=== PATIENT | male | born 1945 | race Two or more races ===

== ENCOUNTER 2019-07-23 15:11 | Inpatient (IN) | payer OTHER ==
[~2019-07-23] VITALS: Ht 172.7 cm; Wt 96.5 kg
[2019-07-23 17:15] LABS: Albumin 3.8 g/dL (3.4-5.0); Anion Gap 12 (5-15); Calcium 8.4 mg/dL (8.5-10.1); Carbon Dioxide 24 mmol/L (21-32); Chloride 102 mmol/L (98-107); Glucose 132 mg/dL (74-106); Sodium 138 mmol/L (136-145)
[2019-07-23 17:20] LABS: Alanine Aminotransferase 15 U/L (16-61); Alkaline Phosphatase 167 U/L (45-117); Aspartate Aminotransferase 13 U/L (15-37); BUN/Creatinine Ratio 9.9; Bilirubin, Total 0.5 mg/dL (0.2-1.0); GFR African American 5 mL/min; GFR Non-African American 4 mL/min; Total Protein 7.2 g/dL (6.4-8.2)
[2019-07-23 17:24] LABS: Basophils # (auto) 0.1 uL; Eosinophils # (auto) 0.3 uL; Eosinophils % (auto) 4.5 % (0.0-7.0); Hematocrit 33.4 % (41.0-53.0); Hemoglobin 10.7 g/dL (13.5-17.5); Lymphocytes # (auto) 1.1 uL; Lymphocytes % (auto) 17.1 % (10.0-50.0); Mean Corpuscular Hemoglobin 32.1 pg (28.0-32.0); Mean Corpuscular Hgb Conc. 32.2 g/dL (32.0-36.0); Mean Corpuscular Volume 99.9 fL (80.0-100.0); Monocytes # (auto) 0.5 uL; Monocytes % (auto) 7.7 % (0.0-12.0); Neutrophils # (auto) 4.5 uL; Neutrophils % (auto) 69.7 % (37.0-80.0); Platelet Count (auto) 188 10^3/uL (140-450); Red Blood Cells 3.34 10^6/uL (4.5-5.90); Red Cell Distribution Width 18.8 % (11.8-14.3); White Blood Cell 6.5 10^3/uL (4.4-10.8)
[2019-07-23] MEDS ORDERED: ALBUTEROL SULF 2.5 MG/0.5ML(0.5%) NEB SOLN NEB STA (17:34)
[2019-07-23 17:36] LABS: Potassium 8.5 mmol/L (3.5-5.1)
[2019-07-23 17:37] LABS: Blood Urea Nitrogen 122 mg/dL (7-18)
[2019-07-23] MEDS ORDERED: DEXTROSE (50%) 50ML SYRG IV ONE ×2 (17:45→19:30)
[2019-07-23] MEDS ORDERED: InsuLIN REG 1unit/0.01ml Soln (100units/ml) IV ONE ×2 (17:45→19:30)
[2019-07-23] MEDS ORDERED: CALCIUM GLUC 4.65meq/50ml D5AE 50 ML IV ONE (17:45)
[2019-07-23] MEDS ORDERED: SODIUM ZIRCONIUM CYCL 10 GM PAK PO ONE (17:45)
[2019-07-23] MEDS ORDERED: SODIUM BICARBONATE 8.4% INJ 50ML SYRINGE IV ONE (17:45)
[2019-07-23] MEDS ORDERED: ACETAMINOPHEN 500 MG TAB PO PRN (18:15)
[2019-07-23] MEDS ORDERED: MORPHINE SULF INJ 2 MG/ML SYRINGE 1ML IV PRN ×2 (18:15)
[2019-07-23] MEDS ORDERED: NITROGLYCERIN 0.4 MG SL TAB SL PRN (18:15)
[2019-07-23] MEDS ORDERED: DEXTROSE (50%) 50ML SYRG IV PRN (18:15)
[2019-07-23] MEDS ORDERED: HYDROcodone-ACET 5/325MG TAB PO PRN (18:15)
[2019-07-23] MEDS ORDERED: ALBUTEROL SULF 2.5 MG/0.5ML(0.5%) NEB SOLN NEB ONE (19:30)
[2019-07-23] MEDS ORDERED: SODIUM BICARBONATE 8.4 % INJ 50ML VIAL IV ONE (19:30)
[2019-07-23] MEDS: InsuLIN REG 1unit/0.01ml Soln (100units/ml) SC SCH (22:00)
[2019-07-23] MEDS: ACCU-CHEK COMFORT CURVE STRIP VI SCH (22:24)
[2019-07-23] MEDS: metroNIDAZOLE 500MG/100ML 100 ML IV SCH (22:27)
[2019-07-23 22:30] LABS: BUN/Creatinine Ratio 9.9; Calcium 8.2 mg/dL (8.5-10.1)
[2019-07-23 22:37] LABS: Potassium 6.5 mmol/L (3.5-5.1)
[2019-07-24] VITALS (16 sets, daily range): BP systolic 103–148; BP diastolic 40–86
[2019-07-24] MEDS: hydrALAZINE HCL 20 MG/ML VL IV SCH ×4 (00:54→17:38)
--- NOTE | 2019-07-24 04:00 | NUR ---
REPORT RECEIVED, ASSUMED CARE.
[2019-07-24 05:55] LABS: Basophils # (auto) 0.1 uL; Basophils % (auto) 0.7 % (0.0-2.0); Eosinophils # (auto) 0.2 uL; Eosinophils % (auto) 3.1 % (0.0-7.0); Hematocrit 30.3 % (41.0-53.0); Lymphocytes # (auto) 0.8 uL; Lymphocytes % (auto) 10.7 % (10.0-50.0); Mean Corpuscular Hemoglobin 32.8 pg (28.0-32.0); Mean Corpuscular Hgb Conc. 33.1 g/dL (32.0-36.0); Mean Corpuscular Volume 98.9 fL (80.0-100.0); Monocytes # (auto) 0.4 uL; Monocytes % (auto) 5.6 % (0.0-12.0); Neutrophils # (auto) 5.9 uL; Neutrophils % (auto) 79.9 % (37.0-80.0); Nucleated Red Blood Cells % 0.1 %; Platelet Count (auto) 189 10^3/uL (140-450); Red Blood Cells 3.06 10^6/uL (4.5-5.90); White Blood Cell 7.4 10^3/uL (4.4-10.8)
[2019-07-24] MEDS: metroNIDAZOLE 500MG/100ML 100 ML IV SCH ×3 (06:00→21:40)
[2019-07-24 06:18] LABS: Albumin 3.5 g/dL (3.4-5.0); BUN/Creatinine Ratio 9.9; Calcium 8.3 mg/dL (8.5-10.1)
[2019-07-24 06:22] LABS: Bilirubin, Total 0.6 mg/dL (0.2-1.0); Total Protein 6.6 g/dL (6.4-8.2)
[2019-07-24 06:27] LABS: Potassium 7.8 mmol/L (3.5-5.1)
[2019-07-24] MEDS: InsuLIN REG 1unit/0.01ml Soln (100units/ml) SC SCH ×4 (06:31→22:36)
[2019-07-24] MEDS: ACCU-CHEK COMFORT CURVE STRIP VI SCH ×4 (06:31→22:36)
--- NOTE | 2019-07-24 06:34 | NUR ---
NOTIFIED HOSPITALIST OF CRITICAL K+ 7.8
[2019-07-24] MEDS ORDERED: ALBUTEROL SULF 2.5 MG/0.5ML(0.5%) NEB SOLN NEB ONE (06:45)
[2019-07-24] MEDS ORDERED: SODIUM ZIRCONIUM CYCL 10 GM PAK PO ONE (06:45)
[2019-07-24] MEDS ORDERED: CALCIUM GLUC 4.65meq/50ml D5AE 50 ML IV ONE (06:45)
[2019-07-24] MEDS ORDERED: DEXTROSE (50%) 50ML SYRG IV ONE (06:45)
[2019-07-24] MEDS ORDERED: InsuLIN REG 1unit/0.01ml Soln (100units/ml) IV ONE (06:45)
[2019-07-24] MEDS ORDERED: SODIUM BICARBONATE 8.4 % INJ 50ML VIAL IV ONE (06:45)
--- NOTE | 2019-07-24 07:50 | NUR ---
MADE ERROR USING INCORRECT USER NAME (USED SORAIDA ON ACCIDENT) FOR SOME OF THE AM DOCUMENTATION. REPLACED WITH CORRECT USER NAME.
--- NOTE | 2019-07-24 08:00 | NUR ---
SBAR REPORT RECEIVED FROM MARIBETH QUIGLEY RN. AM ASSESSMENT PERFORMED AT THIS TIME WITH 0 COMPLICATIONS NOTED. SEE FLOWSHEET FOR MORE DETAILS. VSS.
--- NOTE | 2019-07-24 08:00 | NUR ---
SBAR REPORT RECEIVED FROM MARIBETH QUIGLEY RN. AM ASSESSMENT PERFORMED AT THIS TIME WITH 0 COMPLICATIONS NOTED. SEE FLOWSHEET FOR MORE DETAILS. VSS
--- NOTE | 2019-07-24 08:15 | NUR ---
PT HAS ORDERS FOR HEMODIALYSIS TODAY. HD RN AT BEDSIDE. PT OFFICIALLY HOOKED UP AT HD SESSION AT THIS TIME WITH 0 COMPLICATIONS NOTED, VSS.
--- NOTE | 2019-07-24 08:15 | NUR ---
PT HAS ORDERS FOR HEMODIALYSIS TODAY. HD RN AT BEDSIDE. PT OFFICIALLY HOOKED UP AT HD SESSION AT THIS TIME WITH 0 COMPLICATIONS NOTED, VSS.
[2019-07-24] MEDS ORDERED: SODIUM CHL 0.9% 1000 ML BAG XX ONE (08:30)
--- NOTE | 2019-07-24 09:04 | NUR ---
[id number] 07/24/19 Contacted systems security analyst Magali at [employer] and requested authorization to be provided for patient's continued stay. Per Magali they did receive clinical information today on this patient-but that the residential case manager has not yet been assigned, they don't come in until 929-the assigned residential case manager will have to review today's clinical information before further authorization can be provided. I requested that Magali have the assigned residential case manager give me a call-contact information provided.
--- NOTE | 2019-07-24 11:15 | NUR ---
PT COMPLETED WITH HEMODIALYSIS TREATMENT AT THIS TIME. PT TOLERATED PROCEDURE WELL WITH 0 COMPLICATIONS NOTED, VSS. TOTAL OUTPUT FOR THIS SESSION IS 2.5 LITERS.
[2019-07-24] MEDS: FAMOTIDINE 20 MG TAB PO SCH (12:00)
--- NOTE | 2019-07-24 12:31 | NUR ---
PT COMPLETED DIALYSIS SESSION EARLIER TODAY. DSG'S TO LEFT ARM FISTULA TAKEN OFF. SITE WNL (NO OOZING NOTED, BRUIT/THRILL PALPABLE, PULSES PALPABLE). VSS.
--- NOTE | 2019-07-24 14:00 | NUR ---
MD MIKE AT BEDSIDE. UPDATED MD WITH PT OVERALL STATUS INCLUDING ABNORMAL LAB VALUES. NEW ORDERS GIVEN AND IMPLEMENTED, VSS.
--- NOTE | 2019-07-24 15:44 | NUR ---
SPOKE WITH PT'S FAMILY ABOUT POC. NO FURTHER QUESTIONS NOTED AT THIS TIME. PT'S VERBALIZED UNDERSTANDING WITH POC, VSS.
--- NOTE | 2019-07-24 15:59 | NUR ---
md garg at bedside. updated with pt's overall status including abnormal labs. new orders given and implemented, vss. Addendum: 07/24/19 at 1616 by Amira Mendez RN md garg at bedside. updated with pt's overall status including abnormal labs. no new orders at this time, vsS.
--- NOTE | 2019-07-24 16:15 | NUR ---
cytology laboratory manager at bedside drawing BMP at this time. vss.
[2019-07-24 16:43] LABS: BUN/Creatinine Ratio 7.4
--- NOTE | 2019-07-24 17:52 | NUR ---
sbar report given to rose guadalupe at this time for continuity of care. no changes noted in pt's condition. vss.
--- NOTE | 2019-07-24 18:16 | NUR ---
Telemetry admit from ER WILLA GERARDO admitted to Telemetry unit after SBAR received. Patient oriented to Holli lugo RN, unit, room, bed, and unit policies regarding patient care and visiting hours. Patient now on continuous telemetry monitoring, tele box #70 and telemetry reading on arrival to unit is SR. Patient placed on bed side oxygen, weighed by bed scale and encouraged to call if they need something. All questions and concerns addressed, patient verbalized understanding. Instructed patient on POC, fall precautions and to call for assistance as needed. Patient verbalized understanding. Fall precautions in place with call light within reach.
--- NOTE | 2019-07-24 19:16 | NUR ---
Care endorsed to ANDREW Christina. Patient resting in bed with even and unlabored respirations, no distress noted. Fall precautions in place with call light within reach.
--- NOTE | 2019-07-24 19:35 | NUR ---
Opening Shift Note Assumed care of patient, awake and alert. No S/S of distress/SOB or pain. Instructed on POC and to call for assist PRN, will continue to monitor for changes Q1hr and PRN.
[2019-07-24] MEDS ORDERED: EPOETIN ALFA 4,000 UNIT/ML VL SC ONE (21:00)
[2019-07-25] MEDS: hydrALAZINE HCL 20 MG/ML VL IV SCH ×4 (00:14→18:30)
--- NOTE | 2019-07-25 00:15 | NUR ---
ASSESSMENT The patient's temperature in 100.0 F. The patient reports feeling hot and sweaty. Will administer with PRN Tylenol.
[2019-07-25 05:00] VITALS: BP 143/65
[2019-07-25] MEDS: metroNIDAZOLE 500MG/100ML 100 ML IV SCH ×3 (05:59→21:52)
[2019-07-25] MEDS: ACCU-CHEK COMFORT CURVE STRIP VI SCH ×4 (06:18→21:53)
[2019-07-25] MEDS: InsuLIN REG 1unit/0.01ml Soln (100units/ml) SC SCH ×4 (06:18→21:53)
--- NOTE | 2019-07-25 07:41 | NUR ---
CLOSING NOTE CARE HAS BEEN ENDORSE TO DAY SHIFT RN.
--- NOTE | 2019-07-25 07:42 | NUR ---
Opening Shift Note Assumed care of patient, awake and alert x4. No S/S of distress or SOB, no pain noted or reported at this time. Respirations are even and unlabored on RA. Updated on POC and instructed to call for assistance as needed, patient verbalized understanding. Bed locked in lowest position, side rails up x2, call light within reach. Will continue to monitor for changes Q1hr and PRN.
[2019-07-25 08:16] VITALS: BP 145/59
--- NOTE | 2019-07-25 10:12 | NUR ---
1000 07/25/19 Contacted Danna-Teasel Gig Operator at [facility] requesting authorization for patient's continued stay. I questioned her about the denial for yesterday-she said it was due to lack of information (due to the fact that the information they received yesterday was for the day before). I let Danna know that I spoke with senior policy analyst Magali yesterday morning and had requested a phone call from the briefcase sewer and that never happened. Per Teasel Gig Operator Danna-they are overturning the denial for yesterday-giving us authorization through 1000 today-she will fax it to us. Teasel Gig Operator Danna's direct line [phone]. I spoke with Dr. Frost regarding the plan of care for this patient-she has not seen him yet today-but possible discharge home.
[2019-07-25] MEDS: FAMOTIDINE 20 MG TAB PO SCH (10:40)
--- NOTE | 2019-07-25 11:40 | NUR ---
IV removal IV DC'd with clean sterile technique, catheter fully intact. Pressure dressing applied to site. Patient tolerated well. NOTE: [Right hand and right wrist both removed, leaking, painful and occluded)
--- NOTE | 2019-07-25 11:55 | NUR ---
IV insertion IV access obtained, via clean sterile technique by inserting 22 gauge catheter at right forearm after 3 attempt(s). IV secured properly. No trauma to site. Patient tolerated well.
[2019-07-25 12:22] VITALS: BP 145/71
[2019-07-25] MEDS: ONDANSETRON HCL 4 MG/2 ML VIAL IV PRN (12:29)
[2019-07-25] MEDS ORDERED: SODIUM CHL 0.9% 1000 ML BAG XX ONE (12:45)
--- NOTE | 2019-07-25 13:45 | NUR ---
Dialysis nurse at bedside.
--- NOTE | 2019-07-25 15:19 | NUR ---
oyster shipper returned Heparin Per oyster shipper, patient states he does not use Heparin. Returned to [facility].
--- NOTE | 2019-07-25 16:26 | NUR ---
Patient discharge on hold Spoke with Danna at [facility] ([phone]), patient is okay to stay one more night if patient prefers. Spoke with patient, he would prefer to stay here and not be transferred. Dr. Gutiérrez is okay with patient staying one more night, labs to be drawn in the am, and as long as patient does not have any more nausea/vomiting, he should be discharged home tomorrow. die set up worker Shanna Pittman made aware as well.
[2019-07-25 16:27] VITALS: BP 150/76
--- NOTE | 2019-07-25 16:32 | NUR ---
2234 I received a message from [facility] [employer] Return Repairer Danna letting me know that she spoke with patient and he prefers to stay here and not be transferred to [facility]. Per Danna-they are providing authorization until 07/26/19 1000. I spoke with nurse Suad-she spoke with Dr. Frost regarding patient's request to stay here.
--- NOTE | 2019-07-25 18:30 | NUR ---
Dialysis completed No fluids removed. Patient vitals stable BP 151/83, HR 68. No s/s of distress or SOB. Patient sitting up eating dinner. Addendum: 07/25/19 at 1903 by Suad Augustine RN Per print line operator, Okay to remove fistula access dressing after 1930 as long as there are no s/s of bleeding. Patient did not receive heparin so monitor closely.
--- NOTE | 2019-07-25 18:41 | NUR ---
Patient Rounds Patient sitting up at bedside eating dinner. No S/S of distress or SOB. Care will be endorsed to night baker RN.
[2019-07-25 19:04] VITALS: BP 151/83
--- NOTE | 2019-07-25 19:30 | NUR ---
Opening Shift Note Assumed care of patient, awake and alert. No S/S of distress/SOB or pain. Fistula to left FA thrill felt. Instructed on POC and to call for assist PRN, will continue to monitor for changes Q1hr and PRN.
[2019-07-25] MEDS ORDERED: EPOETIN ALFA 4,000 UNIT/ML VL SC ONE (21:00)
[2019-07-25 22:00] VITALS: BP 144/57
[2019-07-26 05:00] VITALS: BP 153/63
[2019-07-26] MEDS: metroNIDAZOLE 500MG/100ML 100 ML IV SCH (06:34)
[2019-07-26] MEDS: hydrALAZINE HCL 20 MG/ML VL IV SCH ×3 (06:35→12:00)
--- NOTE | 2019-07-26 06:35 | NUR ---
New IV started to left FA, 22 G. Removed previous IV due to "burning" whenever I flushed his IV. Tolerated well. No distress noted
[2019-07-26 06:40] LABS: Basophils # (auto) 0.1 uL; Basophils % (auto) 1.2 % (0.0-2.0); Eosinophils # (auto) 0.2 uL; Eosinophils % (auto) 4.6 % (0.0-7.0); Hematocrit 31.8 % (41.0-53.0); Hemoglobin 10.7 g/dL (13.5-17.5); Lymphocytes # (auto) 0.7 uL; Lymphocytes % (auto) 13.6 % (10.0-50.0); Mean Corpuscular Hemoglobin 32.9 pg (28.0-32.0); Mean Corpuscular Hgb Conc. 33.7 g/dL (32.0-36.0); Mean Corpuscular Volume 97.6 fL (80.0-100.0); Monocytes # (auto) 0.6 uL; Monocytes % (auto) 11.3 % (0.0-12.0); Neutrophils # (auto) 3.4 uL; Neutrophils % (auto) 69.3 % (37.0-80.0); Platelet Count (auto) 172 10^3/uL (140-450); Red Blood Cells 3.26 10^6/uL (4.5-5.90); Red Cell Distribution Width 17.4 % (11.8-14.3); White Blood Cell 4.9 10^3/uL (4.4-10.8)
[2019-07-26 06:47] LABS: BUN/Creatinine Ratio 6.1; Calcium 8.3 mg/dL (8.5-10.1); Potassium 4.7 mmol/L (3.5-5.1)
[2019-07-26] MEDS ORDERED: SODIUM CHL 0.9% 1000 ML BAG XX ONE (07:00)
[2019-07-26] MEDS: ACCU-CHEK COMFORT CURVE STRIP VI SCH ×2 (07:00→11:11)
[2019-07-26] MEDS: InsuLIN REG 1unit/0.01ml Soln (100units/ml) SC SCH ×2 (07:00→11:11)
--- NOTE | 2019-07-26 07:45 | NUR ---
Opening Note Assumed pt care from [facility] nurse. Pt is a/ox4 with no s/s of distress or SOB. Pt is currently sitting out of bed eating breakfast with no complaints. Discussed POC with pt and the scheduled dialysis today; pt verbalized understanding. Discussed possible d/c today; pt verbalized understanding. Safety measures maintained with call light within reach, bed in lowest position and side rails up. Will continue to monitor for changes q1hr and prn.
--- NOTE | 2019-07-26 08:53 | NUR ---
Dialysis at Bedside
[2019-07-26] MEDS: FAMOTIDINE 20 MG TAB PO SCH (08:54)
[2019-07-26 09:13] VITALS: BP 137/64
--- NOTE | 2019-07-26 10:14 | NUR ---
Dr Frost at Bedside MD at bedside; plans to d/c home today post dialysis. Will implement orders and follow through.
[2019-07-26 10:20] VITALS: BP 137/64
--- NOTE | 2019-07-26 10:54 | NUR ---
MRSA NARES SPECIMEN SENT TO LAB
--- NOTE | 2019-07-26 12:07 | NUR ---
Tele Box Sent to ICU Tele number [phone] sent back to ICU.
--- NOTE | 2019-07-26 12:24 | NUR ---
Dialysis Complete Dialysis nurse reported that 1.35 L removed, ending BP of 167/58 with a HR of 59. Pressure dressing applied and to be removed at 1400. Pt complains of mild dizziness. Will continue to monitor. Addendum: 07/26/19 at 1244 by EMILY LEIGH RN RN Reassessed pt, BP is 148/72 HR of 70. Pt states that he no longer feels dizzy. Will continue to monitor and follow through with eunice/sadiq
[2019-07-26 12:35] VITALS: BP 163/71
[2019-07-26] MEDS: ONDANSETRON HCL 4 MG/2 ML VIAL IV PRN (13:01)
--- NOTE | 2019-07-26 13:56 | NUR ---
IV Removed IV to pt's R FA removed fully intact. Site is asymptomatic. Pressure applied for 3 minutes with gauze and then wrapped in coban. Pt instructed to keep dressing on for 30 minutes. Pt verbalized understanding.
--- NOTE | 2019-07-26 14:01 | NUR ---
Pt D/C'ed off Unit Pt left unit via wheelchair accompanied by his daughter. Pt has all belongings, education material, as well as follow-up information. All questions were answered for discharge. Pt's IV was d/c'ed and telebox was removed and sent back to ICU.
== END 2019-07-26 14:01 | disposition home or self-care (01) | DRG 640 ==
LOC: EDBD 15:11 → ER 15:18 → TELE 15:19 → TELE-WESTW 07-24 18:30
PROVIDERS: ADMIT Nurse Practitioner Acute Care; ATTEND Internal Medicine Nephrology
PROC: 5A1D70Z Performance of Urinary Filtration, Intermittent, Less than 6 Hours Per Day (ICD-10-PCS; principal; 2019-07-24)
PROC: 5A1D70Z Performance of Urinary Filtration, Intermittent, Less than 6 Hours Per Day (ICD-10-PCS; 2019-07-25)
PROC: 5A1D70Z Performance of Urinary Filtration, Intermittent, Less than 6 Hours Per Day (ICD-10-PCS; 2019-07-26)
DX: E87.5 Hyperkalemia (principal); N18.6 End stage renal disease; I12.0 Hypertensive chronic kidney disease with stage 5 chronic kidney disease or end stage renal disease; A04.9 Bacterial intestinal infection, unspecified; R00.1 Bradycardia, unspecified; E11.22 Type 2 diabetes mellitus with diabetic chronic kidney disease; E66.9 Obesity, unspecified; E78.00 Pure hypercholesterolemia, unspecified; E78.5 Hyperlipidemia, unspecified; D63.8 Anemia in other chronic diseases classified elsewhere; I25.10 Atherosclerotic heart disease of native coronary artery without angina pectoris; K21.9 Gastro-esophageal reflux disease without esophagitis; Z99.2 Dependence on renal dialysis; Z79.84 Long term (current) use of oral hypoglycemic drugs; Z68.32 Body mass index [BMI] 32.0-32.9, adult; Z91.15 Patient's noncompliance with renal dialysis
CPT/HCPCS: 36415; 71045; 80048; 80053; 82962; 83036; 83880; 84484; 85025; 87081; 90935; 93005; 94640; 99291; G0378; J0610; J1642; J1815; J2405; J3490

== ENCOUNTER 2020-10-18 12:31 | Inpatient (IN) | payer OTHER ==
[~2020-10-18] VITALS: Ht 172.7 cm; Wt 109.0 kg
[2020-10-18 13:31] LABS: Basophils # (auto) 0 10 ^3/uL (0-0.2); Basophils % (auto) 0.8 % (0.0-2.0); Eosinophils # (auto) 0 10 ^3/uL (0-0.8); Eosinophils % (auto) 0.1 % (0.0-7.0); Hematocrit 32.2 % (41.0-53.0); Hemoglobin 10.7 g/dL (13.5-17.5); Lymphocytes # (auto) 0.4 10 ^3/uL (0.4-5.4); Lymphocytes % (auto) 7.4 % (10.0-50.0); Mean Corpuscular Hemoglobin 29.5 pg (28.0-32.0); Mean Corpuscular Hgb Conc. 33.4 g/dL (32.0-36.0); Mean Corpuscular Volume 88.4 fL (80.0-100.0); Monocytes # (auto) 0.3 10 ^3/uL (0-1.3); Monocytes % (auto) 6.9 % (0.0-12.0); Neutrophils # (auto) 4.3 10 ^3/uL (1.6-8.6); Neutrophils % (auto) 84.8 % (37.0-80.0); Platelet Count (auto) 145 10^3/uL (140-450); Red Blood Cells 3.64 10^6/uL (4.5-5.90); Red Cell Distribution Width 16.5 % (11.8-14.3)
[2020-10-18 13:47] LABS: Albumin 3.2 g/dL (3.4-5.0); Calcium 7.6 mg/dL (8.5-10.1); Magnesium 2.2 mg/dL (1.6-2.6); Potassium 3.5 mmol/L (3.5-5.1)
[2020-10-18 13:53] LABS: BUN/Creatinine Ratio 4.6; Bilirubin, Total 0.5 mg/dL (0.2-1.0); Phosphorus 2.7 mg/dL (2.5-4.90); Total Protein 7.8 g/dL (6.4-8.2)
[2020-10-18] MEDS ORDERED: ALUM & MAG HYDROX-SIMETH LIQ(MAALOX) 30 ML PO ONE (15:30)
[2020-10-18] MEDS ORDERED: HYDROcodone-ACET 5/325MG TAB PO PRN (22:45)
[2020-10-18] MEDS ORDERED: DOCUSATE SOD 100 MG CAP PO PRN (22:45)
[2020-10-18] MEDS ORDERED: MORPHINE SULF INJ 2 MG/ML SYRINGE 1ML IV PRN (22:45)
[2020-10-18] MEDS ORDERED: MORPHINE SULFATE 4 MG/ML SYR/VIAL IV PRN (22:45)
[2020-10-18] MEDS ORDERED: DEXTROSE (50%) 50ML SYRG IV PRN (22:45)
[2020-10-18] MEDS ORDERED: NITROGLYCERIN 0.4 MG SL TAB SL PRN (22:45)
[2020-10-18] MEDS ORDERED: ACETAMINOPHEN 500 MG TAB PO PRN (22:45)
[2020-10-19] MEDS: DOXYCYCLINE 100MG/250ML 250 ML IV SCH ×3 (00:45→23:12)
[2020-10-19] MEDS: DexAMETHasone SOD PHOS 10MG/1ML VIAL INJ IV SCH ×2 (00:45→11:19)
[2020-10-19] MEDS: LORazepam 0.5 MG TAB PO PRN (01:57)
[2020-10-19] MEDS: SODIUM CHLOR 0.9% PF (SALINE LOCK) 10ML VIAL/SYR IV SCH ×3 (06:00→23:12)
[2020-10-19 07:00] LABS: Basophils # (auto) 0 10 ^3/uL (0-0.2); Basophils % (auto) 0.5 % (0.0-2.0); Eosinophils # (auto) 0 10 ^3/uL (0-0.8); Hematocrit 32.6 % (41.0-53.0); Hemoglobin 10.6 g/dL (13.5-17.5); Lymphocytes # (auto) 0.7 10 ^3/uL (0.4-5.4); Lymphocytes % (auto) 10.5 % (10.0-50.0); Mean Corpuscular Hgb Conc. 32.6 g/dL (32.0-36.0); Mean Corpuscular Volume 88.9 fL (80.0-100.0); Monocytes # (auto) 0.3 10 ^3/uL (0-1.3); Monocytes % (auto) 3.7 % (0.0-12.0); Neutrophils # (auto) 5.9 10 ^3/uL (1.6-8.6); Neutrophils % (auto) 85.3 % (37.0-80.0); Platelet Count (auto) 160 10^3/uL (140-450); Red Blood Cells 3.67 10^6/uL (4.5-5.90); Red Cell Distribution Width 16.1 % (11.8-14.3); White Blood Cell 6.9 10^3/uL (4.4-10.8)
[2020-10-19 07:22] LABS: Potassium 4.6 mmol/L (3.5-5.1)
[2020-10-19 07:30] LABS: Albumin 3.1 g/dL (3.4-5.0); BUN/Creatinine Ratio 5.5; Bilirubin, Total 0.4 mg/dL (0.2-1.0); Calcium 7.5 mg/dL (8.5-10.1); Total Protein 7.7 g/dL (6.4-8.2)
[2020-10-19] MEDS: ACCU-CHEK COMFORT CURVE STRIP VI SCH ×4 (07:57→22:00)
[2020-10-19] MEDS: InsuLIN REG 1unit/0.01ml Soln (100units/ml) SC SCH ×4 (07:57→22:10)
[2020-10-19] MEDS: BUDESONIDE (INHALATION) 180 MCG IH IN SCH ×2 (10:00→18:40)
[2020-10-19] MEDS: FAMOTIDINE (10MG/ML) 2ML VL IV SCH ×2 (11:19→23:12)
[2020-10-19] MEDS: HEPARIN SODIUM (PORCINE) 5000 UNITS/ML 1ML VIAL SC SCH ×2 (11:20→23:13)
[2020-10-19] MEDS: ASCORBIC ACID 1,000 MG TAB PO SCH (11:20)
[2020-10-19] MEDS: MULTIPLE VITAMIN TAB PO SCH (11:20)
[2020-10-19] MEDS: ZINC SULFATE 220mg CAP or TAB PO SCH (11:20)
[2020-10-19] MEDS: CHOLECALCIFEROL (VITD3) 2,000 UNIT CAP/TAB PO SCH (11:20)
[2020-10-19] MEDS: ALBUTEROL SULF HFA 90MCG INH 200DOSE IN PRN (18:56)
[2020-10-19] MEDS ORDERED: hydrALAZINE HCL 10 MG TAB PO ONE (22:15)
[2020-10-20 00:10] VITALS: BP 160/68
[2020-10-20 01:26] VITALS: BP 160/68
[2020-10-20 06:06] LABS: Basophils # (auto) 0 10 ^3/uL (0-0.2); Basophils % (auto) 0.3 % (0.0-2.0); Eosinophils # (auto) 0 10 ^3/uL (0-0.8); Hematocrit 31.1 % (41.0-53.0); Hemoglobin 10.3 g/dL (13.5-17.5); Lymphocytes # (auto) 0.5 10 ^3/uL (0.4-5.4); Lymphocytes % (auto) 6.5 % (10.0-50.0); Mean Corpuscular Hgb Conc. 33.2 g/dL (32.0-36.0); Mean Corpuscular Volume 87.5 fL (80.0-100.0); Monocytes # (auto) 0.4 10 ^3/uL (0-1.3); Monocytes % (auto) 5.5 % (0.0-12.0); Neutrophils # (auto) 6.4 10 ^3/uL (1.6-8.6); Neutrophils % (auto) 87.7 % (37.0-80.0); Platelet Count (auto) 176 10^3/uL (140-450); Red Blood Cells 3.55 10^6/uL (4.5-5.90); Red Cell Distribution Width 15.9 % (11.8-14.3); White Blood Cell 7.3 10^3/uL (4.4-10.8)
[2020-10-20] MEDS: ACCU-CHEK COMFORT CURVE STRIP VI SCH ×4 (06:10→22:00)
[2020-10-20] MEDS: SODIUM CHLOR 0.9% PF (SALINE LOCK) 10ML VIAL/SYR IV SCH ×3 (06:10→22:00)
[2020-10-20] MEDS: InsuLIN REG 1unit/0.01ml Soln (100units/ml) SC SCH ×4 (06:14→22:59)
[2020-10-20] MEDS: ALBUTEROL SULF HFA 90MCG INH 200DOSE IN PRN ×2 (06:24→19:15)
[2020-10-20] MEDS: BUDESONIDE (INHALATION) 180 MCG IH IN SCH ×2 (06:24→19:15)
[2020-10-20 07:36] LABS: Calcium 7.8 mg/dL (8.5-10.1); Potassium 4.4 mmol/L (3.5-5.1)
[2020-10-20 08:00] VITALS: BP 185/75
[2020-10-20] MEDS: HEPARIN SODIUM (PORCINE) 5000 UNITS/ML 1ML VIAL SC SCH ×2 (10:26→23:04)
[2020-10-20] MEDS: FAMOTIDINE (10MG/ML) 2ML VL IV SCH (10:28)
[2020-10-20] MEDS: CHOLECALCIFEROL (VITD3) 2,000 UNIT CAP/TAB PO SCH (10:29)
[2020-10-20] MEDS: ZINC SULFATE 220mg CAP or TAB PO SCH (10:29)
[2020-10-20] MEDS: DexAMETHasone SOD PHOS 10MG/1ML VIAL INJ IV SCH (10:29)
[2020-10-20] MEDS: MULTIPLE VITAMIN TAB PO SCH (10:30)
[2020-10-20] MEDS: ASCORBIC ACID 1,000 MG TAB PO SCH (10:30)
[2020-10-20] MEDS: DOXYCYCLINE 100MG/250ML 250 ML IV SCH ×2 (10:31→23:02)
[2020-10-20] MEDS ORDERED: hydrALAZINE HCL 20 MG/ML VL IV ONE (11:00)
[2020-10-20] MEDS ORDERED: hydrALAZINE HCL 25 MG TAB PO ONE (12:30)
[2020-10-20] MEDS ORDERED: LABETALOL HCL 5 MG/ML 4ML SYRINGE IV PRN (12:30)
[2020-10-20] MEDS ORDERED: ASPirin 81 mg TAB PO ONE (12:30)
[2020-10-20] MEDS ORDERED: FAMOTIDINE (10MG/ML) 2ML VL IV ONE ×2 (12:30→12:45)
[2020-10-20] MEDS: hydrALAZINE HCL 25 MG TAB PO SCH ×2 (15:39→23:01)
[2020-10-20 15:49] VITALS: BP 194/76
[2020-10-20] MEDS ORDERED: ASPI-543 PO (17:44)
[2020-10-20] MEDS ORDERED: FOLI1TAB6 PO (17:44)
[2020-10-20] MEDS ORDERED: GABA100C9 PO (17:44)
[2020-10-20] MEDS ORDERED: B-CO1TAB8 PO (17:44)
[2020-10-20] MEDS ORDERED: SEVE800T8 PO (17:44)
[2020-10-20] MEDS ORDERED: METO25TA5 PO (17:44)
[2020-10-20] MEDS ORDERED: TERA1CAP50 PO (17:44)
[2020-10-20] MEDS ORDERED: SIMV10TA84 PO (17:44)
[2020-10-20] MEDS ORDERED: LOSA-39 PO (17:44)
[2020-10-20] MEDS ORDERED: AMLO-496 PO (17:44)
[2020-10-20] MEDS ORDERED: FURO40TA4 PO (17:44)
[2020-10-20 19:00] VITALS: BP 162/79
[2020-10-20] MEDS: LORazepam 0.5 MG TAB PO PRN (23:08)
[2020-10-21] VITALS: BP 170/81
[2020-10-21] MEDS: hydrALAZINE HCL 25 MG TAB PO SCH ×3 (04:53→21:59)
[2020-10-21] MEDS: SODIUM CHLOR 0.9% PF (SALINE LOCK) 10ML VIAL/SYR IV SCH ×3 (04:55→22:00)
[2020-10-21] MEDS: InsuLIN REG 1unit/0.01ml Soln (100units/ml) SC SCH ×4 (05:52→21:52)
[2020-10-21 06:17] VITALS: BP 146/74
[2020-10-21] MEDS: ACCU-CHEK COMFORT CURVE STRIP VI SCH ×4 (06:27→21:53)
[2020-10-21] MEDS ORDERED: SODIUM CHL 0.9% 1000 ML BAG XX ONE (07:00)
[2020-10-21 07:32] LABS: Basophils # (auto) 0 10 ^3/uL (0-0.2); Eosinophils # (auto) 0 10 ^3/uL (0-0.8); Hematocrit 31.1 % (41.0-53.0); Hemoglobin 10.1 g/dL (13.5-17.5); Lymphocytes # (auto) 0.4 10 ^3/uL (0.4-5.4); Lymphocytes % (auto) 2.5 % (10.0-50.0); Mean Corpuscular Hemoglobin 28.2 pg (28.0-32.0); Mean Corpuscular Hgb Conc. 32.3 g/dL (32.0-36.0); Mean Corpuscular Volume 87.1 fL (80.0-100.0); Monocytes # (auto) 0.3 10 ^3/uL (0-1.3); Monocytes % (auto) 2.4 % (0.0-12.0); Neutrophils # (auto) 13.3 10 ^3/uL (1.6-8.6); Neutrophils % (auto) 95.1 % (37.0-80.0); Platelet Count (auto) 230 10^3/uL (140-450); Red Blood Cells 3.57 10^6/uL (4.5-5.90); Red Cell Distribution Width 16.4 % (11.8-14.3)
[2020-10-21 07:55] LABS: % Iron Saturation 14.4 % (20-55)
[2020-10-21 07:58] LABS: Calcium 7.9 mg/dL (8.5-10.1); Potassium 4.5 mmol/L (3.5-5.1)
[2020-10-21 08:00] VITALS: BP 162/76
[2020-10-21 08:02] LABS: BUN/Creatinine Ratio 8.6; Bilirubin, Total 0.5 mg/dL (0.2-1.0); Total Protein 7.5 g/dL (6.4-8.2)
[2020-10-21] MEDS: BUDESONIDE (INHALATION) 180 MCG IH IN SCH ×2 (09:35→19:54)
[2020-10-21] MEDS: ALBUTEROL SULF HFA 90MCG INH 200DOSE IN PRN ×2 (09:35→19:54)
[2020-10-21] MEDS ORDERED: DexAMETHasone SOD PHOS 10MG/1ML VIAL INJ IV SCH (10:00)
[2020-10-21] MEDS ORDERED: FAMOTIDINE (10MG/ML) 2ML VL IV SCH (10:00)
[2020-10-21] MEDS: DOXYCYCLINE 100MG/250ML 250 ML IV SCH ×2 (10:20→21:59)
[2020-10-21] MEDS: ASPirin 81 mg TAB PO SCH (10:21)
[2020-10-21] MEDS: CHOLECALCIFEROL (VITD3) 2,000 UNIT CAP/TAB PO SCH (10:22)
[2020-10-21] MEDS: ASCORBIC ACID 1,000 MG TAB PO SCH (10:23)
[2020-10-21] MEDS: ZINC SULFATE 220mg CAP or TAB PO SCH (10:23)
[2020-10-21] MEDS: MULTIPLE VITAMIN TAB PO SCH (10:23)
[2020-10-21] MEDS: HEPARIN SODIUM (PORCINE) 5000 UNITS/ML 1ML VIAL SC SCH ×2 (10:25→21:55)
[2020-10-21] MEDS: LORazepam 0.5 MG TAB PO PRN (12:41)
[2020-10-21] MEDS ORDERED: amLODIPine BESYLATE 5 MG TAB PO ONE (12:45)
[2020-10-21] MEDS ORDERED: B-COMPLEX W/ C & FOLIC ACID(NEPHROVITE TAB) PO ONE (12:45)
[2020-10-21 16:00] VITALS: BP 173/79
[2020-10-21] MEDS: SEVELAMER 800 MG TAB PO SCH (17:36)
[2020-10-21] MEDS ORDERED: EPOETIN ALFA 4,000 UNIT/ML VL SC ONE (21:00)
[2020-10-21] MEDS: ATORVASTATIN 20 MG TAB PO SCH (21:56)
[2020-10-21] MEDS: TERAZOSIN HCL 1 MG CAP PO SCH (21:57)
[2020-10-21] MEDS ORDERED: TEMAZEPAM 15 MG CAP PO ONE (22:30)
[2020-10-21 23:50] VITALS: BP 153/71
[2020-10-22] MEDS: hydrALAZINE HCL 25 MG TAB PO SCH ×3 (06:21→21:48)
[2020-10-22 06:22] LABS: Basophils # (auto) 0 10 ^3/uL (0-0.2); Basophils % (auto) 0.2 % (0.0-2.0); Eosinophils # (auto) 0 10 ^3/uL (0-0.8); Hematocrit 29.7 % (41.0-53.0); Hemoglobin 10.1 g/dL (13.5-17.5); Lymphocytes # (auto) 0.3 10 ^3/uL (0.4-5.4); Lymphocytes % (auto) 2.5 % (10.0-50.0); Mean Corpuscular Hemoglobin 29.4 pg (28.0-32.0); Mean Corpuscular Hgb Conc. 33.9 g/dL (32.0-36.0); Mean Corpuscular Volume 86.6 fL (80.0-100.0); Monocytes # (auto) 0.3 10 ^3/uL (0-1.3); Monocytes % (auto) 2.5 % (0.0-12.0); Neutrophils # (auto) 9.6 10 ^3/uL (1.6-8.6); Neutrophils % (auto) 94.8 % (37.0-80.0); Platelet Count (auto) 207 10^3/uL (140-450); Red Blood Cells 3.44 10^6/uL (4.5-5.90); Red Cell Distribution Width 16.2 % (11.8-14.3); White Blood Cell 10.2 10^3/uL (4.4-10.8)
[2020-10-22] MEDS: SODIUM CHLOR 0.9% PF (SALINE LOCK) 10ML VIAL/SYR IV SCH ×3 (06:23→21:47)
[2020-10-22 06:39] LABS: Albumin 2.6 g/dL (3.4-5.0); Calcium 7.4 mg/dL (8.5-10.1); Potassium 4.2 mmol/L (3.5-5.1)
[2020-10-22] MEDS: InsuLIN REG 1unit/0.01ml Soln (100units/ml) SC SCH ×4 (06:43→21:57)
[2020-10-22 06:44] LABS: BUN/Creatinine Ratio 8.1; Bilirubin, Total 0.5 mg/dL (0.2-1.0); Total Protein 6.7 g/dL (6.4-8.2)
[2020-10-22] MEDS: ACCU-CHEK COMFORT CURVE STRIP VI SCH ×4 (06:44→21:58)
[2020-10-22] MEDS: BUDESONIDE (INHALATION) 180 MCG IH IN SCH ×2 (06:56→19:57)
[2020-10-22] MEDS: SEVELAMER 800 MG TAB PO SCH ×3 (07:59→17:31)
[2020-10-22 08:00] VITALS: BP 148/73
[2020-10-22] MEDS: FOLIC ACID 1 MG TAB PO SCH (10:00)
[2020-10-22] MEDS: DOXYCYCLINE 100MG/250ML 250 ML IV SCH ×2 (10:00→21:48)
[2020-10-22] MEDS: B-COMPLEX W/ C & FOLIC ACID(NEPHROVITE TAB) PO SCH (10:53)
[2020-10-22] MEDS: MULTIPLE VITAMIN TAB PO SCH (10:53)
[2020-10-22] MEDS: ZINC SULFATE 220mg CAP or TAB PO SCH (10:54)
[2020-10-22] MEDS: CHOLECALCIFEROL (VITD3) 2,000 UNIT CAP/TAB PO SCH (10:54)
[2020-10-22] MEDS: ASPirin 81 mg TAB PO SCH (10:55)
[2020-10-22] MEDS: ASCORBIC ACID 1,000 MG TAB PO SCH (10:55)
[2020-10-22] MEDS: amLODIPine BESYLATE 5 MG TAB PO SCH (10:55)
[2020-10-22] MEDS: HEPARIN SODIUM (PORCINE) 5000 UNITS/ML 1ML VIAL SC SCH ×2 (10:56→21:51)
[2020-10-22] MEDS ORDERED: FUROSEMIDE 40 MG TAB PO ONE (12:15)
[2020-10-22] MEDS ORDERED: REMDESIVIR PER PHARMACY 0 ML IV SCH (12:15)
[2020-10-22] MEDS ORDERED: DexAMETHasone SOD PHOS 4 MG/1ML SDV INJ IV ONE (12:15)
[2020-10-22] MEDS ORDERED: REMDESIVIR 200 MG in NS 210ml LOADING DOSE ADULT IV ONE (15:00)
[2020-10-22 16:00] VITALS: BP 108/57
[2020-10-22] MEDS ORDERED: CIPROFLOXACIN 400MG/200ML 200 ML IV ONE (18:50)
[2020-10-22] MEDS: ALBUTEROL SULF HFA 90MCG INH 200DOSE IN PRN (19:57)
[2020-10-22] MEDS: TERAZOSIN HCL 1 MG CAP PO SCH (21:50)
[2020-10-22] MEDS: ATORVASTATIN 20 MG TAB PO SCH (21:50)
[2020-10-22 23:37] VITALS: BP 120/65
[2020-10-23 01:48] VITALS: BP 137/59
[2020-10-23 02:04] VITALS: BP 122/55
[2020-10-23] MEDS ORDERED: LORazepam 2MG/ML-1ML VIAL ONE (03:16)
[2020-10-23 03:25] VITALS: BP 148/70
[2020-10-23 05:48] LABS: Basophils # (auto) 0 10 ^3/uL (0-0.2); Basophils % (auto) 0.2 % (0.0-2.0); Eosinophils # (auto) 0 10 ^3/uL (0-0.8); Hematocrit 28.2 % (41.0-53.0); Hemoglobin 9.7 g/dL (13.5-17.5); Lymphocytes # (auto) 0.2 10 ^3/uL (0.4-5.4); Lymphocytes % (auto) 2.4 % (10.0-50.0); Mean Corpuscular Hemoglobin 29.6 pg (28.0-32.0); Mean Corpuscular Hgb Conc. 34.4 g/dL (32.0-36.0); Mean Corpuscular Volume 85.9 fL (80.0-100.0); Monocytes # (auto) 0.3 10 ^3/uL (0-1.3); Monocytes % (auto) 3.2 % (0.0-12.0); Neutrophils # (auto) 8.4 10 ^3/uL (1.6-8.6); Neutrophils % (auto) 94.2 % (37.0-80.0); Platelet Count (auto) 228 10^3/uL (140-450); Red Blood Cells 3.28 10^6/uL (4.5-5.90); Red Cell Distribution Width 16.3 % (11.8-14.3); White Blood Cell 8.9 10^3/uL (4.4-10.8)
[2020-10-23] MEDS: hydrALAZINE HCL 25 MG TAB PO SCH ×3 (06:00→21:59)
[2020-10-23] MEDS: SODIUM CHLOR 0.9% PF (SALINE LOCK) 10ML VIAL/SYR IV SCH ×3 (06:04→21:54)
[2020-10-23 06:10] LABS: Potassium 5.3 mmol/L (3.5-5.1)
[2020-10-23 06:18] LABS: Albumin 2.4 g/dL (3.4-5.0); BUN/Creatinine Ratio 9.7; Bilirubin, Total 0.4 mg/dL (0.2-1.0); Calcium 7.2 mg/dL (8.5-10.1); Total Protein 6.5 g/dL (6.4-8.2)
[2020-10-23] MEDS ORDERED: SODIUM CHL 0.9% 1000 ML BAG XX ONE (07:00)
[2020-10-23] MEDS: ACCU-CHEK COMFORT CURVE STRIP VI SCH ×4 (07:00→21:55)
[2020-10-23] MEDS: InsuLIN REG 1unit/0.01ml Soln (100units/ml) SC SCH ×4 (07:00→21:51)
[2020-10-23] MEDS: BUDESONIDE (INHALATION) 180 MCG IH IN SCH ×2 (07:19→19:23)
[2020-10-23 08:00] VITALS: BP 147/72
[2020-10-23] MEDS: ASCORBIC ACID 1,000 MG TAB PO SCH (09:43)
[2020-10-23] MEDS: MULTIPLE VITAMIN TAB PO SCH (09:43)
[2020-10-23] MEDS: CHOLECALCIFEROL (VITD3) 2,000 UNIT CAP/TAB PO SCH (09:44)
[2020-10-23] MEDS: FOLIC ACID 1 MG TAB PO SCH (09:44)
[2020-10-23] MEDS: SEVELAMER 800 MG TAB PO SCH ×3 (09:44→19:05)
[2020-10-23] MEDS: ZINC SULFATE 220mg CAP or TAB PO SCH (09:44)
[2020-10-23] MEDS: FUROSEMIDE 40 MG TAB PO SCH (09:45)
[2020-10-23] MEDS: amLODIPine BESYLATE 5 MG TAB PO SCH (09:45)
[2020-10-23] MEDS: B-COMPLEX W/ C & FOLIC ACID(NEPHROVITE TAB) PO SCH (09:45)
[2020-10-23] MEDS: ASPirin 81 mg TAB PO SCH (09:45)
[2020-10-23] MEDS: FAMOTIDINE (10MG/ML) 2ML VL IV SCH (09:46)
[2020-10-23] MEDS: DOXYCYCLINE 100MG/250ML 250 ML IV SCH (09:46)
[2020-10-23] MEDS: HEPARIN SODIUM (PORCINE) 5000 UNITS/ML 1ML VIAL SC SCH (09:47)
[2020-10-23] MEDS: DexAMETHasone SOD PHOS 10MG/1ML VIAL INJ IV SCH (10:00)
[2020-10-23] MEDS: ONDANSETRON HCL 4 MG/2 ML VIAL IV PRN (12:29)
[2020-10-23 16:00] VITALS: BP 121/55
[2020-10-23] MEDS: REMDESIVIR 100mg 100 MG in SODIUM CHL 0.9% 230 ML IV SCH (16:20)
[2020-10-23] MEDS: ALBUTEROL SULF HFA 90MCG INH 200DOSE IN PRN (19:23)
[2020-10-23] MEDS ORDERED: EPOETIN ALFA 4,000 UNIT/ML VL SC ONE (21:00)
[2020-10-23] MEDS: ATORVASTATIN 20 MG TAB PO SCH (21:48)
[2020-10-23] MEDS: ENOXAPARIN SOD 60 MG/0.6 ML SYRINGE SC SCH (21:54)
[2020-10-23 21:56] VITALS: BP 117/65
[2020-10-23] MEDS: TERAZOSIN HCL 1 MG CAP PO SCH (21:59)
[2020-10-23] MEDS ORDERED: ENOXAPARIN SOD 60 MG/0.6 ML SYRINGE SC SCH (22:00)
[2020-10-24] VITALS: BP 117/65
[2020-10-24 00:42] VITALS: BP 117/65
[2020-10-24] MEDS: ONDANSETRON HCL 4 MG/2 ML VIAL IV PRN ×2 (02:03→08:10)
[2020-10-24 06:00] VITALS: BP 133/62
[2020-10-24] MEDS: SODIUM CHLOR 0.9% PF (SALINE LOCK) 10ML VIAL/SYR IV SCH ×4 (06:20→22:53)
[2020-10-24] MEDS: hydrALAZINE HCL 25 MG TAB PO SCH ×3 (06:21→22:53)
[2020-10-24] MEDS: ACCU-CHEK COMFORT CURVE STRIP VI SCH ×4 (06:35→22:00)
[2020-10-24] MEDS: InsuLIN REG 1unit/0.01ml Soln (100units/ml) SC SCH ×4 (06:39→22:00)
[2020-10-24 07:21] LABS: Hemoglobin 10.1 g/dL (13.5-17.5); Mean Corpuscular Hemoglobin 29.4 pg (28.0-32.0); Mean Corpuscular Hgb Conc. 33.7 g/dL (32.0-36.0); Mean Corpuscular Volume 87.3 fL (80.0-100.0); Platelet Count (auto) 290 10^3/uL (140-450); Red Blood Cells 3.44 10^6/uL (4.5-5.90); Red Cell Distribution Width 16.6 % (11.8-14.3); White Blood Cell 15.8 10^3/uL (4.4-10.8)
[2020-10-24 07:39] LABS: Albumin 2.4 g/dL (3.4-5.0); Band Neutrophils % (manual) 0; Basophils % (manual) 0 (0.0-2.0); Blast Cells 0; Calcium 7.7 mg/dL (8.5-10.1); Eosinophils % (manual) 0 (0-7); Potassium 4.7 mmol/L (3.5-5.1); Promyelocytes % 0; Reactive Lymphocytes 0
[2020-10-24 07:42] LABS: BUN/Creatinine Ratio 9.3; Bilirubin, Total 0.4 mg/dL (0.2-1.0); Total Protein 6.6 g/dL (6.4-8.2)
[2020-10-24 08:00] VITALS: BP 101/68
[2020-10-24 08:00] LABS: Lymphocytes % (manual) 2 (10.0-50.0); Metamyelocytes % 1; Monocytes % (manual) 11 (0-12); Myelocytes % 1
[2020-10-24] MEDS: ASPirin 81 mg TAB PO SCH (10:14)
[2020-10-24] MEDS: SEVELAMER 800 MG TAB PO SCH ×3 (10:14→17:21)
[2020-10-24] MEDS: DexAMETHasone SOD PHOS 10MG/1ML VIAL INJ IV SCH (10:14)
[2020-10-24] MEDS: ZINC SULFATE 220mg CAP or TAB PO SCH (10:15)
[2020-10-24] MEDS: FUROSEMIDE 40 MG TAB PO SCH (10:15)
[2020-10-24] MEDS: FOLIC ACID 1 MG TAB PO SCH (10:15)
[2020-10-24] MEDS: MULTIPLE VITAMIN TAB PO SCH (10:16)
[2020-10-24] MEDS: B-COMPLEX W/ C & FOLIC ACID(NEPHROVITE TAB) PO SCH (10:16)
[2020-10-24] MEDS: amLODIPine BESYLATE 5 MG TAB PO SCH (10:16)
[2020-10-24] MEDS: ASCORBIC ACID 1,000 MG TAB PO SCH (10:16)
[2020-10-24] MEDS: CHOLECALCIFEROL (VITD3) 2,000 UNIT CAP/TAB PO SCH (10:17)
[2020-10-24] MEDS: ENOXAPARIN SOD 60 MG/0.6 ML SYRINGE SC SCH (10:17)
[2020-10-24 16:00] VITALS: BP 125/61
[2020-10-24] MEDS: REMDESIVIR 100mg 100 MG in SODIUM CHL 0.9% 230 ML IV SCH (16:00)
[2020-10-24] MEDS: Nepro With Carbsteady ButterPecan 8oz Carton PO SCH (18:48)
[2020-10-24] MEDS: ALBUTEROL SULF HFA 90MCG INH 200DOSE IN PRN (19:09)
[2020-10-24] MEDS: BUDESONIDE (INHALATION) 180 MCG IH IN SCH (19:09)
[2020-10-24] MEDS: ATORVASTATIN 20 MG TAB PO SCH (22:00)
[2020-10-24] MEDS: TERAZOSIN HCL 1 MG CAP PO SCH (22:00)
[2020-10-25] VITALS: BP 134/72
[2020-10-25 06:07] LABS: Hematocrit 31.3 % (41.0-53.0); Hemoglobin 10.4 g/dL (13.5-17.5); Mean Corpuscular Hemoglobin 28.9 pg (28.0-32.0); Mean Corpuscular Hgb Conc. 33.3 g/dL (32.0-36.0); Mean Corpuscular Volume 86.8 fL (80.0-100.0); Platelet Count (auto) 305 10^3/uL (140-450); Red Cell Distribution Width 16.6 % (11.8-14.3); White Blood Cell 8.4 10^3/uL (4.4-10.8)
[2020-10-25 06:20] LABS: Potassium 4.7 mmol/L (3.5-5.1)
[2020-10-25] MEDS: InsuLIN REG 1unit/0.01ml Soln (100units/ml) SC SCH ×4 (06:24→22:18)
[2020-10-25 06:29] LABS: Albumin 2.6 g/dL (3.4-5.0); BUN/Creatinine Ratio 11.7; Bilirubin, Total 0.5 mg/dL (0.2-1.0); Calcium 7.9 mg/dL (8.5-10.1); Total Protein 6.7 g/dL (6.4-8.2)
[2020-10-25 06:38] LABS: Basophils % (manual) 0 (0.0-2.0); Blast Cells 0; Eosinophils % (manual) 0 (0-7); Metamyelocytes % 0; Myelocytes % 0; Promyelocytes % 0; Reactive Lymphocytes 0
[2020-10-25] MEDS ORDERED: SODIUM CHL 0.9% 1000 ML BAG XX ONE (07:00)
[2020-10-25] MEDS: ACCU-CHEK COMFORT CURVE STRIP VI SCH ×4 (07:24→21:45)
[2020-10-25] MEDS: BUDESONIDE (INHALATION) 180 MCG IH IN SCH ×2 (07:30→21:32)
[2020-10-25] MEDS: ALBUTEROL SULF HFA 90MCG INH 200DOSE IN PRN ×2 (07:30→21:32)
[2020-10-25 08:00] VITALS: BP 122/48
[2020-10-25] MEDS: SEVELAMER 800 MG TAB PO SCH ×3 (08:58→18:39)
[2020-10-25] MEDS: Nepro With Carbsteady ButterPecan 8oz Carton PO SCH ×3 (08:58→18:39)
[2020-10-25] MEDS: DexAMETHasone SOD PHOS 10MG/1ML VIAL INJ IV SCH (10:37)
[2020-10-25] MEDS: FAMOTIDINE (10MG/ML) 2ML VL IV SCH (10:37)
[2020-10-25] MEDS: ASPirin 81 mg TAB PO SCH (10:38)
[2020-10-25] MEDS: FOLIC ACID 1 MG TAB PO SCH (10:38)
[2020-10-25] MEDS: ZINC SULFATE 220mg CAP or TAB PO SCH (10:38)
[2020-10-25] MEDS: FUROSEMIDE 40 MG TAB PO SCH (10:39)
[2020-10-25] MEDS: B-COMPLEX W/ C & FOLIC ACID(NEPHROVITE TAB) PO SCH (10:40)
[2020-10-25] MEDS: MULTIPLE VITAMIN TAB PO SCH (10:40)
[2020-10-25] MEDS: ASCORBIC ACID 1,000 MG TAB PO SCH (10:46)
[2020-10-25] MEDS: amLODIPine BESYLATE 5 MG TAB PO SCH (10:46)
[2020-10-25] MEDS: CHOLECALCIFEROL (VITD3) 2,000 UNIT CAP/TAB PO SCH (10:47)
[2020-10-25] MEDS: ENOXAPARIN SOD 60 MG/0.6 ML SYRINGE SC SCH (10:47)
[2020-10-25] MEDS: hydrALAZINE HCL 25 MG TAB PO SCH ×2 (14:00→21:40)
[2020-10-25] MEDS: SODIUM CHLOR 0.9% PF (SALINE LOCK) 10ML VIAL/SYR IV SCH ×2 (14:00→22:00)
[2020-10-25 14:40] LABS: Band Neutrophils % (manual) 4; Lymphocytes % (manual) 3 (10.0-50.0); Monocytes % (manual) 6 (0-12)
[2020-10-25 15:43] VITALS: BP 111/54
[2020-10-25 18:00] VITALS: BP 138/64
[2020-10-25] MEDS: REMDESIVIR 100mg 100 MG in SODIUM CHL 0.9% 230 ML IV SCH (18:03)
[2020-10-25 18:18] VITALS: BP 144/77
[2020-10-25] MEDS: ATORVASTATIN 20 MG TAB PO SCH (21:45)
[2020-10-25] MEDS: TERAZOSIN HCL 1 MG CAP PO SCH (21:45)
[2020-10-25] MEDS: LORazepam 2MG/ML-1ML VIAL IV PRN (23:00)
[2020-10-26] VITALS: BP 141/71
[2020-10-26] MEDS: hydrALAZINE HCL 25 MG TAB PO SCH ×3 (06:00→20:58)
[2020-10-26] MEDS: SODIUM CHLOR 0.9% PF (SALINE LOCK) 10ML VIAL/SYR IV SCH ×3 (06:00→20:58)
[2020-10-26 06:29] LABS: Potassium 4.8 mmol/L (3.5-5.1)
[2020-10-26 06:46] LABS: Albumin 2.4 g/dL (3.4-5.0); BUN/Creatinine Ratio 12.1; Calcium 7.8 mg/dL (8.5-10.1)
[2020-10-26 06:56] LABS: Bilirubin, Total 0.4 mg/dL (0.2-1.0); Total Protein 5.9 g/dL (6.4-8.2)
[2020-10-26] MEDS: InsuLIN REG 1unit/0.01ml Soln (100units/ml) SC SCH ×4 (06:56→22:38)
[2020-10-26] MEDS: ACCU-CHEK COMFORT CURVE STRIP VI SCH ×4 (06:58→22:32)
[2020-10-26] MEDS: BUDESONIDE (INHALATION) 180 MCG IH IN SCH ×2 (07:43→20:49)
[2020-10-26] MEDS: ALBUTEROL SULF HFA 90MCG INH 200DOSE IN PRN ×2 (07:43→20:48)
[2020-10-26 07:52] VITALS: BP 141/69
[2020-10-26] MEDS: SEVELAMER 800 MG TAB PO SCH ×3 (08:07→17:37)
[2020-10-26] MEDS: Nepro With Carbsteady ButterPecan 8oz Carton PO SCH ×3 (08:07→18:41)
[2020-10-26] MEDS: ASPirin 81 mg TAB PO SCH (10:10)
[2020-10-26] MEDS: DexAMETHasone SOD PHOS 10MG/1ML VIAL INJ IV SCH (10:10)
[2020-10-26] MEDS: ZINC SULFATE 220mg CAP or TAB PO SCH (10:11)
[2020-10-26] MEDS: FOLIC ACID 1 MG TAB PO SCH (10:11)
[2020-10-26] MEDS: MULTIPLE VITAMIN TAB PO SCH (10:11)
[2020-10-26] MEDS: FUROSEMIDE 40 MG TAB PO SCH (10:11)
[2020-10-26] MEDS: B-COMPLEX W/ C & FOLIC ACID(NEPHROVITE TAB) PO SCH (10:12)
[2020-10-26] MEDS: amLODIPine BESYLATE 5 MG TAB PO SCH (10:12)
[2020-10-26] MEDS: CHOLECALCIFEROL (VITD3) 2,000 UNIT CAP/TAB PO SCH (10:13)
[2020-10-26] MEDS: ASCORBIC ACID 1,000 MG TAB PO SCH (10:13)
[2020-10-26] MEDS: ENOXAPARIN SOD 60 MG/0.6 ML SYRINGE SC SCH (10:13)
[2020-10-26] MEDS: REMDESIVIR 100mg 100 MG in SODIUM CHL 0.9% 230 ML IV SCH (15:29)
[2020-10-26 16:08] VITALS: BP 148/61
[2020-10-26] MEDS: TERAZOSIN HCL 1 MG CAP PO SCH (20:59)
[2020-10-26] MEDS: ATORVASTATIN 20 MG TAB PO SCH (20:59)
[2020-10-26] MEDS: LORazepam 2MG/ML-1ML VIAL IV PRN (21:01)
[2020-10-26] MEDS ORDERED: INSULIN LANTUS (GLARGINE) 1 /0.01ml (100units/ml) SC ONE (23:00)
[2020-10-27] VITALS: BP 137/68
[2020-10-27] MEDS: SODIUM CHLOR 0.9% PF (SALINE LOCK) 10ML VIAL/SYR IV SCH ×3 (06:30→22:41)
[2020-10-27] MEDS: ACCU-CHEK COMFORT CURVE STRIP VI SCH ×4 (06:30→21:54)
[2020-10-27] MEDS: hydrALAZINE HCL 25 MG TAB PO SCH ×3 (06:30→21:54)
[2020-10-27] MEDS: InsuLIN REG 1unit/0.01ml Soln (100units/ml) SC SCH ×4 (06:31→21:48)
[2020-10-27] MEDS: BUDESONIDE (INHALATION) 180 MCG IH IN SCH (06:47)
[2020-10-27 07:09] LABS: Potassium 5.1 mmol/L (3.5-5.1)
[2020-10-27 07:20] LABS: BUN/Creatinine Ratio 13.5; Calcium 7.4 mg/dL (8.5-10.1); Magnesium 2.7 mg/dL (1.6-2.6); Phosphorus 5.3 mg/dL (2.5-4.90)
[2020-10-27 08:00] VITALS: BP 141/60
[2020-10-27] MEDS: ASCORBIC ACID 1,000 MG TAB PO SCH (09:06)
[2020-10-27] MEDS: DexAMETHasone SOD PHOS 10MG/1ML VIAL INJ IV SCH (09:06)
[2020-10-27] MEDS: Nepro With Carbsteady ButterPecan 8oz Carton PO SCH ×3 (09:06→17:54)
[2020-10-27] MEDS: ZINC SULFATE 220mg CAP or TAB PO SCH (09:06)
[2020-10-27] MEDS: ASPirin 81 mg TAB PO SCH (09:08)
[2020-10-27] MEDS: B-COMPLEX W/ C & FOLIC ACID(NEPHROVITE TAB) PO SCH (09:08)
[2020-10-27] MEDS: FUROSEMIDE 40 MG TAB PO SCH (09:08)
[2020-10-27] MEDS: FOLIC ACID 1 MG TAB PO SCH (09:08)
[2020-10-27] MEDS: FAMOTIDINE (10MG/ML) 2ML VL IV SCH (09:09)
[2020-10-27] MEDS: MULTIPLE VITAMIN TAB PO SCH (09:09)
[2020-10-27] MEDS: amLODIPine BESYLATE 5 MG TAB PO SCH (09:09)
[2020-10-27] MEDS: CHOLECALCIFEROL (VITD3) 2,000 UNIT CAP/TAB PO SCH (09:09)
[2020-10-27] MEDS: SEVELAMER 800 MG TAB PO SCH ×3 (09:10→17:52)
[2020-10-27 16:00] VITALS: BP 166/78
[2020-10-27] MEDS: TERAZOSIN HCL 1 MG CAP PO SCH (21:54)
[2020-10-27] MEDS: ATORVASTATIN 20 MG TAB PO SCH (21:54)
[2020-10-27] MEDS ORDERED: INSULIN LANTUS (GLARGINE) 1 /0.01ml (100units/ml) SC SCH (22:00)
[2020-10-27] MEDS: INSULIN LANTUS (GLARGINE) 1 /0.01ml (100units/ml) SC SCH (22:03)
[2020-10-27] MEDS: ALBUTEROL SULF HFA 90MCG INH 200DOSE IN PRN (22:50)
[2020-10-28] VITALS: BP 162/70
[2020-10-28] MEDS ORDERED: DEXTROSE (50%) 50ML SYRG IV PRN (00:45)
[2020-10-28] MEDS: LORazepam 2MG/ML-1ML VIAL IV PRN (01:36)
[2020-10-28] MEDS: InsuLIN REG 1unit/0.01ml Soln (100units/ml) SC SCH ×4 (04:09→16:00)
[2020-10-28] MEDS: ACCU-CHEK COMFORT CURVE STRIP VI SCH ×4 (04:10→16:00)
[2020-10-28] MEDS: SODIUM CHLOR 0.9% PF (SALINE LOCK) 10ML VIAL/SYR IV SCH ×2 (05:02→15:48)
[2020-10-28] MEDS: hydrALAZINE HCL 25 MG TAB PO SCH ×2 (05:54→15:48)
[2020-10-28] MEDS ORDERED: SODIUM CHL 0.9% 1000 ML BAG XX ONE (07:00)
[2020-10-28 07:35] LABS: Hematocrit 28.3 % (41.0-53.0); Hemoglobin 9.6 g/dL (13.5-17.5); Mean Corpuscular Hemoglobin 28.9 pg (28.0-32.0); Mean Corpuscular Hgb Conc. 33.7 g/dL (32.0-36.0); Mean Corpuscular Volume 85.8 fL (80.0-100.0); Platelet Count (auto) 254 10^3/uL (140-450); Red Cell Distribution Width 16.5 % (11.8-14.3); White Blood Cell 8.4 10^3/uL (4.4-10.8)
[2020-10-28 07:42] LABS: Basophils % (manual) 0 (0.0-2.0); Blast Cells 0; Eosinophils % (manual) 0 (0-7); Promyelocytes % 0; Reactive Lymphocytes 0
[2020-10-28 08:00] VITALS: BP 130/75
[2020-10-28] MEDS: SEVELAMER 800 MG TAB PO SCH ×3 (08:00→17:56)
[2020-10-28 08:34] LABS: Band Neutrophils % (manual) 1; Lymphocytes % (manual) 5 (10.0-50.0); Metamyelocytes % 2; Monocytes % (manual) 1 (0-12); Myelocytes % 2
[2020-10-28] MEDS ORDERED: FAMOTIDINE 20 MG TAB PO SCH (10:00)
[2020-10-28] MEDS: amLODIPine BESYLATE 5 MG TAB PO SCH (11:10)
[2020-10-28] MEDS: MULTIPLE VITAMIN TAB PO SCH (11:10)
[2020-10-28] MEDS: ZINC SULFATE 220mg CAP or TAB PO SCH (11:10)
[2020-10-28] MEDS: B-COMPLEX W/ C & FOLIC ACID(NEPHROVITE TAB) PO SCH (11:10)
[2020-10-28] MEDS: FUROSEMIDE 40 MG TAB PO SCH (11:11)
[2020-10-28] MEDS: ASCORBIC ACID 1,000 MG TAB PO SCH (11:11)
[2020-10-28] MEDS: CHOLECALCIFEROL (VITD3) 2,000 UNIT CAP/TAB PO SCH (11:11)
[2020-10-28] MEDS: ASPirin 81 mg TAB PO SCH (11:11)
[2020-10-28] MEDS: FOLIC ACID 1 MG TAB PO SCH (11:12)
[2020-10-28] MEDS: Nepro With Carbsteady ButterPecan 8oz Carton PO SCH ×3 (11:17→17:52)
[2020-10-28] MEDS: INSULIN LANTUS (GLARGINE) 1 /0.01ml (100units/ml) SC SCH (11:57)
[2020-10-28 15:40] VITALS: BP 145/82
[2020-10-28 18:16] VITALS: BP 145/82
[2020-10-28] MEDS ORDERED: EPOETIN ALFA 4,000 UNIT/ML VL SC ONE (21:00)
== END 2020-10-28 19:15 | disposition home or self-care (01) | DRG 177 ==
LOC: ER 12:31 → EDBD 12:31 → TELE 22:35 → TELE-EAST 10-19 22:27 → TELE-WESTW 10-27 12:10
PROVIDERS: ADMIT Nurse Practitioner Family; ATTEND Internal Medicine
PROC: 5A1D70Z Performance of Urinary Filtration, Intermittent, Less than 6 Hours Per Day (ICD-10-PCS; 2020-10-21)
PROC: XW13325 Transfusion of Convalescent Plasma (Nonautologous) into Peripheral Vein, Percutaneous Approach, New Technology Group 5 (ICD-10-PCS; principal; 2020-10-23)
PROC: 5A1D70Z Performance of Urinary Filtration, Intermittent, Less than 6 Hours Per Day (ICD-10-PCS; 2020-10-23)
PROC: XW033E5 Introduction of Remdesivir Anti-infective into Peripheral Vein, Percutaneous Approach, New Technology Group 5 (ICD-10-PCS; 2020-10-23)
PROC: 05HB33Z Insertion of Infusion Device into Right Basilic Vein, Percutaneous Approach (ICD-10-PCS; 2020-10-24)
PROC: B54MZZA Ultrasonography of Right Upper Extremity Veins, Guidance (ICD-10-PCS; 2020-10-24)
PROC: 5A1D70Z Performance of Urinary Filtration, Intermittent, Less than 6 Hours Per Day (ICD-10-PCS; 2020-10-25)
PROC: 5A1D70Z Performance of Urinary Filtration, Intermittent, Less than 6 Hours Per Day (ICD-10-PCS; 2020-10-28)
DX: U07.1 COVID-19 (principal); J12.82 Pneumonia due to coronavirus disease 2019; N18.6 End stage renal disease; G92 Toxic encephalopathy; J96.01 Acute respiratory failure with hypoxia; E87.1 Hypo-osmolality and hyponatremia; I12.0 Hypertensive chronic kidney disease with stage 5 chronic kidney disease or end stage renal disease; D68.59 Other primary thrombophilia; D63.8 Anemia in other chronic diseases classified elsewhere; E11.22 Type 2 diabetes mellitus with diabetic chronic kidney disease; F41.9 Anxiety disorder, unspecified; I25.10 Atherosclerotic heart disease of native coronary artery without angina pectoris; E11.65 Type 2 diabetes mellitus with hyperglycemia; E78.5 Hyperlipidemia, unspecified; E66.9 Obesity, unspecified; Z79.82 Long term (current) use of aspirin; Z99.2 Dependence on renal dialysis; Z68.34 Body mass index [BMI] 34.0-34.9, adult; I25.2 Old myocardial infarction
CPT/HCPCS: 36415; 51702; 70450; 71045; 80048; 80053; 82306; 82728; 82962; 83036; 83540; 83550; 83605; 83615; 83690; 83735; 84100; 84443; 84484; 85007; 85025; 85027; 85379; 86141; 86850; 86900; 86901; 87426; 90935; 93005; 94640; 97110; 97116; 97530; G0378; J1100; J1815; J2405; J3490

== ENCOUNTER 2024-10-28 12:35 | Emergency (ER) | payer OTHER ==
[~2024-10-28] VITALS: Ht 172.7 cm; Wt 81.8 kg
[~2024-10-28 12:35] MED LIST: AMLO1TAB23 PO; ASPI-543 PO; B-CO1TAB8 PO; FOLI-119 PO; FURO40TA4 PO; GABA-1308 PO; LOSA-535 PO; METO25TA5 PO; SEVE800T8 PO; SIMV10TA20 PO; TERA1CAP50 PO
--- NOTE | 2024-10-28 13:03 | ED.PDOC ---
HPI (NEURO) HPI Comments 79 year old male ANNITA presents to the ED with chief complaint of syncope. EMS reports patient had been witnessed by family at home to have a syncopal episode in his wheelchair, so he was taken out of it and put flat on the floor. EMS relays patient had woken up prior to their arrival and he was A/Ox4 and GCS 15, answering all questions appropriately. Patient states he did not take his BP medication before taking his Hydralazine today, believing that is what made him have his syncopal episode. Patient denies any chest pain, SOB, dizziness, headache, head injury, or N/V. Chief Complaint: Syncope Time Seen by MD: 12:59 Primary Care Provider: EDWARD Reviewed Notes: Nurses Notes, Drum Operator Notes, Medications, Allergies Information Source: Patient, Emergency Med Personnel Mode of Arrival: EMS Severity: Moderate Timing: Hours Duration: Minutes Prehospital treatment: None Circumstances: Spontaneous Symptoms: Syncope Before: Normal During: LOC After: Normal Mentation History of: CVA, DC, DM, Hypertension Past Medical History PAST MEDICAL HISTORY: CAD, CVA, DM, ESRD, HTN, DC Surgical History: Denies all surgeries Family History Family History: Reviewed,noncontributory to illness Social History Smoker: Non-Smoker Alcohol: Denies ETOH Use Drugs: Denies Drug Use Lives In: Home Constitutional: denies: chills, diaphoresis, fatigue, fever, malaise, sweats, weakness, others EENTM: denies: blurred vision, double vision, ear bleeding, ear discharge, ear drainage, ear pain, ear ringing, eye pain, eye redness, hearing loss, mouth pain, mouth swelling, nasal discharge, nose bleeding, nose congestion, nose pain, photophobia, tearing, throat pain, throat swelling, voice changes, others Respiratory: denies: cough, hemoptysis, orthopnea, SOB at rest, shortness of breath, SOB with excertion, stridor, wheezing, others Cardiovascular: reports: syncope; denies: chest pain, dizzy spells, diaphoresis, Dyspnea on exertion, edema, irregular heart beat, left arm pain, lightheadedness, palpitations, PND, others Gastrointestinal: denies: abdomen distended, abdominal pain, blood streaked bowels, constipated, diarrhea, dysphagia, difficulty swallowing, hematemesis, melena, nausea, poor appetite, poor fluid intake, rectal bleeding, rectal pain, vomiting, others Genitourinary: denies: burning, dysuria, flank pain, frequency, hematuria, incontinence, penile discharge, penile sore, pain, testicle pain, testicle swelling, urgency, others Neurological: denies: dizziness, fainting, headache, left sided numbness, left sided weakness, numbness, paresthesia, pre-existing deficit, right sided numbness, right sided weakness, seizure, speech problems, tingling, tremors, weakness, others Musculoskeletal: denies: back pain, gout, joint pain, joint swelling, muscle pain, muscle stiffness, neck pain, others Integumetry: denies: bruises, change in color, change in hair/nails, dryness, laceration, lesions, lumps, rash, wounds, others Allergic/Immunocompromised: denies: Difficulty Healing, Frequent Infections, Hives, Itching, others Hematologic/Lymphatic: denies: anemia, blood clots, easy bleeding, easy bruising, swollen glands, others Endocrine: denies: excessive hunger, excessive sweating, excessive thirst, excessive urination, flushing, intolerance to cold, intolerance to heat, unexplained weight gain, unexplained weight loss, others Psychiatric: denies: anxiety, bipolar disorder, depression, hopeless, panic disorder, schizophrenia, sleepless, suicidal, others All Other Systems: Reviewed and Negative Physical Exam General Appearance: Moderate Distress, Normal HEENT: Normal ENT Inspection, PERRL/EOMI Neck: Full Range of Motion, Non-Tender, Normal, Normal Inspection Respiratory: Chest Non-Tender, Lungs Clear, No Accessory Muscle Use, No Respiratory Distress, Normal Breath Sounds Cardiovascular: Bradycardia (Not symptomatic), No Edema, No JVD, No Murmur, No Gallop, Normal Peripheral Pulses Breast Exam: Deferred Gastrointestinal: No Organomegaly, Non Tender, No Pulsatile Mass, Normal Bowel Sounds, Soft Genitalia: Deferred Pelvic: Deferred Rectal: Deferred Extremities: No calf tenderness, Normal capillary refill, Normal inspection, Normal range of motion, Non-tender, No pedal edema Musculoskeletal : Apperance: Normal Neurologic: Alert, No Motor Deficits, No Sensory Deficits Cerebellar Function: NOT DONE Reflexes: NOT DONE Skin: Dry, Normal Color, Warm Peripheral Pulses: 3+ Radial (R), 3+ Radial (L) Lymphatic: No Adenopathy Was a procedure done? Was a procedure done?: No Differential Diagnosis (SZ) Seizure: Psychogenic Seizure, Closed Head Injury, CVA/TIA X-Ray, Labs, Meds, VS Vital Signs Date Time Temp Pulse Resp B/P (MAP) Pulse Ox O2 Delivery O2 Flow Rate FiO2 10/28/24 14:03 Room Air* 0 21 10/28/24 14:02 98.1 65 17 110/62 (78) 98 98.1 10/28/24 12:50 49 10/28/24 12:49 97.6 49 16 115/54 (74) 100 Current Medications Medications (Trade) Dose Ordered Sig/Anatoly Route Start Time Stop Time Status Last Admin Sodium Chloride 1,000 ml @ 1,000 mls/hr Q1H ONCE IV 10/28/24 13:00 10/28/24 13:59 DC 10/28/24 14:00 Patient alert. Possible syncope at home. Vitals stable. Answering all questions. He is bradycardic. States that bradycardia isn't new. He has been bradycardic for many years. States that he is feeling much better. Insists on going home. Blood pressure within normal limits. Heart rate baseline. Saturation pristine on room air. No distress. Denies headache. Denies dizziness. Explained to him that I can not keep him against his will. CT of the head reviewed does not show any acute changes. Was told to follow up with his primary care physician. Was told to come back if there is any problem. CT Head: FINDINGS: Supratentorial Region: No evidence for large acute territorial ischemia. No intracranial hemorrhage is noted. Posterior Fossa: No acute abnormality. Brainstem: Unremarkable. Sellar/Suprasellar Region: Unremarkable. Ventricles, Cisterns, Sulci: Age-appropriate. Orbits: Unremarkable. Paranasal Sinuses: Unremarkable. Mastoid Air Cells: Unremarkable. Vasculature: Intracranial arterial calcified plaque formation noted. Bones/Soft Tissues: No acute abnormality. Other: None. IMPRESSION: 1. No acute intracranial process. Time of 1ST Reevaluation: 13:59 Reevaluation 1ST: Improved Patient Education/Counseling: Diagnosis, Treatment Family Education/Counseling: No Family Present Departure 1 Departure Time of Disposition: 13:09 Impression: Primary Impression: Bradycardia Additional Impression: Vasovagal syncope Disposition: 01 HOME / SELF CARE / HOMELESS Condition: Good Discharged With: Self Critical Care Note Critical Care Time?: No Stability Stability form required: No Heart Score Heart Score: Heart Score Response (Comments) Value History N/A 0 EKG N/A 0 Age N/A 0 Risk Factors N/A 0 Troponin N/A 0 Total 0 I personally scribed for ARIANA HUERTA MD ([email or web address]) on 10/28/24 at 13:03. Electronically submitted by Ayo Goncalves ([email or web address]). I personally scribed for ARIANA HUERTA MD ([email or web address]) on 10/28/24 at 15:12. Electronically submitted by Ayo Goncalves ([email or web address]). ARIANA HUERTA MD Oct 28, 2024 13:03
[2024-10-28] MEDS: SODIUM CHLORIDE 0.9% 1,000 ML IV ONE (14:00)
--- NOTE | 2024-10-28 14:22 | DVH ---
EXAM: CT HEAD WITHOUT CONTRAST HISTORY: syncope COMPARISON: HEAD WITHOUT CONTRAST on DOS: 10/18/20 TECHNIQUE: Axial images were obtained and reformatted in coronal and sagittal planes. All CT scans at this medical facility are performed using dose modulation techniques as appropriate t o a performed exam including the following: Automated exposure control was utilized; adjustment of th e MA and/or KV according to patient size; and use of iterative reconstruction technique. CT Dose: CTDI volume is 62 mGy. Dose-length product is 1232 mGy*cm FINDINGS: Supratentorial Region: No evidence for large acute territorial ischemia. No intracranial hemorrhage is noted. Posterior Fossa: No acute abnormality. Brainstem: Unremarkable. Sellar/Suprasellar Region: Unremarkable. Ventricles, Cisterns, Sulci: Age-appropriate. Orbits: Unremarkable. Paranasal Sinuses: Unremarkable. Mastoid Air Cells: Unremarkable. Vasculature: Intracranial arterial calcified plaque formation noted. Bones/Soft Tissues: No acute abnormality. Other: None. IMPRESSION: 1. No acute intracranial process.
[2024-10-28 17:06] VITALS: BP 141/56; PULSE 58; RESP 20; TEMP 97.1; O2SAT 98
--- NOTE | 2024-10-30 12:27 | ECG ---
[facility] Test Date: 2024-10-28 Test Time: 12:50:56 Pat Name: WILLA GERARDO Department: ED Room: Gender: M Tower Director: MR GARCIAB: 1945 Requested By: ARIANA HUERTA Order Number: [id number] Reading MD: Dheeraj Morgan Measurements Intervals [place] Rate: 49 P: 8 AK: 193 QRS: -45 QRSD: 173 T: 18 QT: 556 QTc: 503 Interpretive Statements Sinus bradycardia RBBB and LAFB Electronically Signed On 10-30-2024 17:49:00 PST by Dheeraj Morgan Please click the below link to view image of tracing.
== END 2024-10-28 17:08 | disposition home or self-care (01) ==
LOC: EDBD 12:35 → EDUNIT# 12:35 → ER 12:42
DX: R00.1 Bradycardia, unspecified (principal); R55 Syncope and collapse; I12.0 Hypertensive chronic kidney disease with stage 5 chronic kidney disease or end stage renal disease; E11.22 Type 2 diabetes mellitus with diabetic chronic kidney disease; N18.6 End stage renal disease; I25.10 Atherosclerotic heart disease of native coronary artery without angina pectoris
CPT/HCPCS: 36415; 70450; 84484; 93005; 96360; 99284; J7030